=== PATIENT | male | born 1990 | race African-American/Black ===

== ENCOUNTER 2019-05-20 19:33 | Inpatient (IN) ==
[2019-05-20] MEDS ORDERED: NS 1,000 ML IV ONE ×2 (19:46→19:47)
[2019-05-20] MEDS ORDERED: TYLENOL ONE (19:54)
[2019-05-20] MEDS ORDERED: TYLENOL PO ONE (20:00)
--- NOTE | 2019-05-20 20:09 | EKG Report ---
Test Performed on : 05/20/2019 7:49:16 PM Test Reason : tachycardia Blood Pressure : / mmHG Vent. Rate : 084 BPM Atrial Rate : 084 BPM P-R Int : 142 ms QRS Dur : 080 ms QT Int : 326 ms P-R-T Axes : 069 083 051 degrees QTc Int : 385 ms Normal sinus rhythm. Normal ECG When compared with ECG of 10-JUN-2018 10:39, Vent. rate has increased BY 34 BPM Unconfirmed Result
[2019-05-20 20:38] LABS: BASO# 0.01 X1000 (0.0-0.2); BASO% 0.2 % (0.0-0.8); EOS# 0.06 X1000 (0.0-0.7); EOS% 1.3 % (0.0-10.0); HEMATOCRIT 44.3 % (42.0-52.0); HEMOGLOBIN 14.9 g/dL (14.0-18.0); LYMPH# 0.63 X1000 (1.2-3.4); LYMPH% 14.1 % (20.5-51.1); MCH 28.7 PG (27-31); MCHC 33.6 g/dL (33-37); MCV 85.4 FL (81-99); MONO# 0.71 X1000 (0.11-0.59); MONO% 15.9 % (1.7-9.3); MPV 12.8 FL (7.4-10.4); NEUT# 3.06 X1000 (1.4-6.5); NEUT% 68.5 % (42.2-75.2); PLT 104 X1000 (130-400); RBC 5.19 XMIL (4.7-6.1); RDW 13.1 % (11.5-14.5); WBC 4.47 X1000 (4.8-10.8)
[2019-05-20 20:39] LABS: INR 1.11; PROTIME 14.5 Seconds (11.0-16.0)
[2019-05-20 21:02] LABS: AGAP 11; ALB/GLOB RATIO 1.6; ALBUMIN 4.5 g/dL (3.5-5.0); ALKALINE PHOSPHATASE 85 U/L (32-122); BUN 13 mg/dL (8-22); CALCIUM 9.5 mg/dL (8.8-10.2); CHLORIDE 98 mmol/L (98-107); CK PROFILE 146 U/L (24-204); COSMO 271; CREATININE 1.2 mg/dL (0.7-1.2); ESTIMATED GFR > 60; GLUCOSE 107 mg/dL (70-104); GOT 458 U/L (10-34); GPT 550 U/L (10-44); POTASSIUM 4.1 mmol/L (3.5-5.1); SODIUM 135 mmol/L (136-145); TCO2 26 mmol/L (25-35); TOTAL BILIRUBIN 0.78 mg/dL (0.20-1.00); TOTAL PROTEIN 7.3 g/dL (6.3-8.3)
--- NOTE | 2019-05-20 21:02 | Diag Imaging Result Doc PS360 ---
EXAM: CHEST-PORTABLE HISTORY: possible pneumonia TECHNIQUE: Single view COMPARISON: 07/08/2015 FINDINGS: The lungs are well expanded. The heart is not enlarged. The vessels are not distended. There are no infiltrates. No effusion identified. IMPRESSION: No pneumonia Electronically signed by Vinnie Olivera 05/20/2019 9:00 PM
--- NOTE | 2019-05-20 21:37 | PROVIDER DOCUMENTATION ---
This chart was entered by Ara Sheppard Scribe, acting as scribe for Evelyn Ma MD. HPI-General Adult - General Chief Complaint: Flu Symptoms Stated Complaint: HEADACHE FEVER Time Seen by Provider: 05/20/19 19:45 Source: patient Allergies/Adverse Reactions: Patient Allergies Allergy/AdvReac Type Severity Reaction Status Date / Time No Known Allergies Allergy Verified 05/20/19 23:26 Home Medications: Home Medication List Medication Instructions Recorded Confirmed Last Taken Type Haloperidol Decanoate [Haloperidol 1 dose IM Q7D 05/20/19 05/20/19 Unknown History Decanoate 100] - History of Present Illness -Gen Adult Nature of Presenting Problems: pt is a 28 yr old male presenting with 1 day complaint of fever, sore throat, headache and nausea. Denies abdominal pain or cough. pt admits ibuprofen this AM without relief, denies any other complaints, denies any sick contacts or recent travel Location of Pain/Injury: reports: head, other (throat) Pain Radiation: reports: no radiation Quality of Pain: reports: aching (head), burning (throat) Severity: reports: moderate Onset/Duration: reports: this morning Timing: reports: still present Context/Activities at Onset: reports: light activity Modifying Factors: improves with: analgesics (tylenol-no relief) Associated Symptoms: reports: EENT symptoms, fever/chills, headaches. denies: cough, muscle aches, sinus congestion/drainage, shortness of breath Similar Symptoms Previously?: No Recently seen or treated by another doctor?: No Review of Systems - Adult - REVIEW OF SYSTEMS - ADULT Constitutional: reports: fever. denies: chills, fatique Eyes: reports: no symptoms reported Ears, Nose, Mouth & Throat: reports: throat pain. denies: ear pain, sinus problem Cardiovascular: denies: chest pain, palpitations, syncope Respiratory: denies: cough, shortness of breath Gastrointestinal: reports: nausea. denies: abdominal pain, vomiting Genitourinary: reports: no symptoms reported Musculoskeletal: denies: muscle aches, muscle weakness Integumentary: reports: no symptoms reported Neurological: reports: headache/migraines. denies: dizziness/vertigo, syncope Psychiatric: reports: no symptoms reported Endocrine: reports: no symptoms reported Hematologic/Lymphatic: reports: no symptoms reported Allergic/Immunologic: reports: no symptoms reported All Other Systems: Reviewed and Negative Past History - Adult - PAST MEDICAL HISTORY-ADULT Review of Records: reports: Old Records Reviewed, Nursing Assessment Review, Medications Reviewed, Social history reviewed & non-contributory. Major Childhood Illnesses: reports: denies history Cardiovascular: reports: denies history Respiratory: reports: denies history Gastrointestinal: reports: denies history Obstetrical/Gynecological: reports: denies history Genitourinary: reports: denies history Musculoskeletal: reports: denies history Neurological: reports: denies history Psychiatric: reports: schizophrenia Endocrine/Immune: reports: denies history Other Conditions: reports: denies history - PRIOR SURGERIES/PROCEDURES Surgical/Procedure History: reports: none - IMMUNIZATION STATUS Childhood Immunizations: See Nurse Assessment Flu Vaccine: See Nurse Assessment - FAMILY HISTORY Family History: reviewed, not pertinent - SOCIAL HISTORY Smoking: cigarettes Provider spent 3-5 mins advising pt. on dangers of tobacco.: Discussed manners to quit use, and f/u contacts for add'l counseling. Substance Use: alcohol Living Situation: family Physical Exam-General - PHYSICAL EXAM-ADULT Initial Vital Signs Reviewed: Yes - CONSTITUTIONAL General Appearance: appears well, alert, no apparent distress - EYES Eyes: PERRL/EOMI - HEAD, EARS, NOSE, MOUTH & THROAT HENMT: normocephalic/atraumatic, moist mucous membranes, normal ENT inspection - NECK Neck: non-tender, full range of motion, supple, normal inspection - RESPIRATORY Respiratory: chest non-tender, lungs clear, normal breath sounds, no respiratory distress, no accessory muscle use - CARDIOVASCULAR Cardiovascular: normal peripheral pulses, regular rate, rhythm, no edema. negative: tachycardia - GASTROINTESTINAL (ABDOMEN) Abdominal Exam: normal bowel sounds, non tender, soft - LYMPHATIC Lymphatic: no adenopathy - MUSCULOSKELETAL Back Exam: normal inspection, no CVA tenderness, no vertebral tenderness Extremity: normal range of motion, non-tender, normal gait, normal inspection - SKIN Integumentary: normal color, normal turgor, warm/dry - NEUROLOGIC Neurologic: grossly normal, no motor/sensory deficits - PSYCHIATRIC Psych/Mental Status: normal mood/affect, oriented x 3 Progress - PLAN OF CARE/RESULTS Progress/Plan/Lab Results: Vital Signs - 8 hr 05/20/19 19:39 Temperature 102.6 F H Pulse Rate 167 H Respiratory Rate 15 Blood Pressure 108/69 O2 Sat by Pulse Oximetry 99 Orders Category Date Time Status CHEST-PORTABLE [RAD] Stat Exams 05/20/19 19:49 Ordered CBC WITH ELECTRONIC DIFF [HEME] Stat Lab 05/20/19 19:45 Uncollected COMPREHENSIVE METABOLIC PANEL [CHEM] Stat Lab 05/20/19 19:45 Uncollected DIRECT STREP Stat Lab 05/20/19 19:39 Ordered INFLUENZA SCREEN A/B Stat Lab 05/20/19 19:43 Ordered LACTATE, PLASMA [CHEM] Stat Lab 05/20/19 19:45 Uncollected URINALYSIS W/POSS RFLX CULT [URINALYSIS] Stat Lab 05/20/19 19:45 Uncollected URINE DRUG SCREEN Stat Lab 05/20/19 19:45 Uncollected 0.9% Sodium Chloride Inj [Ns] 1,000 ml Med 05/20/19 19:46 Active IV 999 mls/hr 0.9% Sodium Chloride Inj [Ns] 1,000 ml Med 05/20/19 19:47 Active IV 999 mls/hr EKG [EKG] Stat Ther 05/20/19 19:45 Ordered Patient with reported initial HR to 160s however a few minutes later patient entered room and on monitor and EKG HR was in the 80s so the initial is likely incorrect. He did have a temp to 102.6 but flu, strep, CXR and UA all negative. CMP showing transaminitis but tbili, lipase all normal. CT abd pelvis negative for anything acute. Unknown if he acute hepatitis although not jaundiced. Low suspicion for COVID 19 given normal XR and no cough and no positive contacts. Spoke to Dr Staley, expansion joint builder for hosp and discussed patient. Will admit patient to [facility]. Further orders to be placed by their team. Held off medications at this time as there is no known source. Dr Staley agreed. Result Diagrams: 05/20/19 20:08 05/20/19 20:08 - EKG 1 Time of EKG reading by physician:: 19:49 EKG Read and Signed by:: Evelyn Ma EKG Interpretation (*Must complete 3 of following elements*): Normal Rate: 84 Rhythm: nsr Brethren: normal QRS: normal HI Interval: normal ST Wave: normal - CONSULTS/PCP/HOSPITALIST Notification #1 *Consult/PCP/Hospitalist*: Dr Staley Time Discussed: 23:19 Consult Disposition: Admit (Will admit to [facility]) Departure - Departure Date of Disposition Decision: 05/20/19 Time of Disposition Decision: 22:18 DIAGNOSIS: Fever, Viral syndrome, Transaminitis, Nausea Disposition: ADMITTED INPATIENT 09 Certified Medical Emergency: Emergent Condition: Stable - Critical Care Note This patient required my direct & personal management of CC.: No Attestation - Physician/ CHRISTIAN Attestation Patient care was provided by Advanced Practice Provider:: No The physician spent face to face time with patient:: Yes Advanced Practice Provider documentation review:: Supervising physician onsite and consulted in the evaluation and care of this patient. The physician did have a face to face encounter with the patient. This chart was documented by the indicated scribe, (Ara Sheppard Scribe) and accurately reflects the services I performed and decisions made by me, Evelyn Ma MD, as attested by the provider's signature.
[2019-05-20 21:52] LABS: URINE SOURCE CLEAN CATCH
[2019-05-20 21:58] LABS: BILIRUBIN URINE NEGATIVE (NEGATIVE); BLOOD URINE NEGATIVE (NEGATIVE); COLOR YELLOW; GLUCOSE URINE NEGATIVE (NEGATIVE); KETONE URINE NEGATIVE (NEGATIVE); LEUKOCYTES URINE NEGATIVE (NEGATIVE); NITRITE URINE NEGATIVE (NEGATIVE); PH URINE 6.5; PROTEIN URINE NEGATIVE (NEGATIVE); SP GRAVITY URINE 1.022; TURBIDITY URINE CLEAR (CLEAR); UR EPITHELIAL CELLS <10 /HPF (<10); URINE BACTERIA NEGATIVE /HPF; URINE RBC <10 /HPF (<10); URINE WBC <10 /HPF (<10); UROBILINOGEN URINE NORMAL (NORMAL)
--- NOTE | 2019-05-20 22:13 | Diag Imaging Result Doc PS360 ---
EXAM: CT ABD/PELVIS W/IV CONT ONLY HISTORY: fever, nausea, transaminitis TECHNIQUE: CT abdomen and pelvis with intravenous contrast, but without oral contrast. COMPARISON: 07/07/2014 FINDINGS: The gallbladder is contracted. No calcified stones. Normal liver, spleen, pancreas, adrenal glands, and kidneys. No hydronephrosis. There are several right pelvic calcifications believed to be phleboliths. Normal aorta. No bowel obstruction. Normal appendix. No abscess. The urinary bladder is moderately distended. Normal prostate. IMPRESSION: No acute abnormality This exam was performed using automated exposure control, adjustment of mA or kV according to patient size, and/or use of iterative reconstruction technique. Electronically signed by Vinnie Olivera 05/20/2019 10:11 PM
[2019-05-20 22:16] LABS: UR AMPHETAMINES QUAL NONE DETECTED (NONE DETECT); UR BARBITUATES QUAL NONE DETECTED (NONE DETECT); UR BENZODIAZEPIN QUAL NONE DETECTED (NONE DETECT); UR CANNABINOIDS QUAL PRESUMPTIVE POSITIVE (NONE DETECT); UR COCAINE QUAL NONE DETECTED (NONE DETECT); UR METHADONE QUAL NONE DETECTED (NONE DETECT); UR OPIATES QUAL NONE DETECTED (NONE DETECT); UR OXYCODONE QUAL NONE DETECTED (NONE DETECT); UR PCP QUAL NONE DETECTED (NONE DETECT)
[2019-05-20] MEDS ORDERED: TORADOL IV ONE (22:17)
[2019-05-21] MEDS ORDERED: ZOFRAN IV PRN (01:41)
[2019-05-21] MEDS ORDERED: TYLENOL PO PRN (01:42)
[2019-05-21] MEDS ORDERED: NICODERM PATCH TD PRN (01:43)
[2019-05-21] MEDS ORDERED: NS 1,000 ML IV SCH (01:45)
--- NOTE | 2019-05-21 02:21 | HISTORY AND PHYSICAL ---
ADDENDUM Mr. Casper Nicholson came in complaining of nausea, headache, sore throat, fever, and vague abdominal pain. He denied any associated respiratory illness. PHYSICAL EXAMINATION: VITAL SIGNS: Temperature 102.6 degrees, heart rate was in the 80s, respiratory rate is 15, blood pressure 108/69. His exam was essentially benign. HEENT: His oropharynx is normal. LYMPHATIC: No lymphadenopathy. CHEST: Clear. CARDIOVASCULAR: First and second heart sounds were heard. ABDOMEN: Benign. Good distal pulses. LAB WORK: However, showed a white count of 4000 with 104 platelet count. His lymphocytes were 14%. Sodium is 135. AST and ALT 450 and 550, were elevated compared to his baseline. Lipase and lactate both normal. UDS positive cannabinoids, to which the patient says he has been increasingly smoking lots of cannabinoids. IMAGING: CT scan was done and showed no acute abnormality. Chest film showed no pneumonia or acute finding. ASSESSMENT AND PLAN: The patient has elevated transaminases, which could be a viral syndrome and hepatitis panel has been ordered. He does have some degree of lymphocytopenia, which is probably nonspecific. The patient denies any use of Tylenol or uvlb-bol-xiienmi based products. The patient also has some degree of thrombocytopenia. The etiology of this cannot be ascertained. I do suspect this patient has an underlying about illness and I think the patient will need to be observed over the next 24 hours and see how his numbers trend. Depending on this, other investigative processes to rule out infectious source of a viral origin will need to be embarked upon. For now, just supportive measures with NSAIDs and fluids. cc: Sharron Staley MD
--- NOTE | 2019-05-21 05:29 | HISTORY AND PHYSICAL ---
PRIMARY CARE PROVIDER: The patient does not have a primary care provider. DATE AND TIME: 05/20/19 at 2340. CHIEF COMPLAINT: Flu symptoms. HISTORY OF PRESENT ILLNESS: Mr. Nicholson is a 28-year-old male who presents to the ER complaining of headache, sore throat, nausea and reported previous vague abdominal pain but he denies any abdominal pain at present. He has reported that he has had some fever. He denies any upper respiratory symptoms. He denies any sinus congestion, drainage, pressure. He denies any cough or shortness of breath. He also denies any dizziness, feeling lightheaded. He denies any chest pain. He denies any diarrhea, hematochezia or melena. He states his last bowel movement was earlier in the day on May 19. He denies any dysuria or urinary frequency. He denies any pain, numbness, tingling or swelling in extremities. The patient denies any recent illnesses or being around anyone with similar symptoms or flu-like symptoms. He denies any recent travel. He denies any travel out of the country, out of the state or even out of the [facility]. He denies any sick contacts, any contacts with individuals who have been exposed to Covid-19 or have been diagnosed with Covid-19. The patient did report he had taken some fqhj-ari-byquykc Tylenol though other than this he denies any medication use or tpzg-svu-pumrpdc medication use other than his regularly prescribed haloperidol decanoate. He also denies any geek-nrc-duwebxg use of any NSAIDs. He denies any alcohol use. He denies any previous history of liver disease or hepatitis. Upon evaluation in the ER, upon arrival the patient's temperature was 102.6 degrees, heart rate 167, respirations 15, blood pressure was 108/69 with a MAP of 82. Oxygen saturation was 99% on room air. The patient since his arrival has received 1 g of Tylenol p.o., 30 mg of Toradol IV, and 2 L normal saline bolus. Since that time, his vitals have improved to now having a temperature of 98.9 degrees, heart rate 60, respirations 16, blood pressure is 119/58 with a MAP of 73, and oxygen saturation is 99% on room air. The patient was noted upon laboratory findings to have transaminitis with an elevation of AST and ALT. The patient has not had this previously upon reviewing his laboratory history. Also noted he was slightly thrombocytopenic with a platelet count of 104,000. The urinalysis did not show any signs of infection. His urine drug screen was only positive for cannabinoids. They did perform influenza screen which was negative, a rapid strep which was negative. Blood cultures have also been obtained. Given his fever and elevated liver enzymes, We did perform a chest x-ray which showed no pneumonia. A CT of the abdomen and pelvis showed no acute abnormality. The patient at this time will be admitted outpatient with observation for further evaluation of his elevated liver function tests and his fever. The patient does not have a primary care provider that he could immediately follow up with outpatient. He will be placed for admission to the medical floor. REVIEW OF SYSTEMS: A 14 point review of systems was conducted with the patient and all were negative except for pertinent positives mentioned in above HPI. PAST MEDICAL HISTORY: 1. Schizophrenia. 2. Depression 3. Report history of previous suicide attempts. He denies any suicidal thoughts at present. 4. A reported history of a seizure that occurred one time at 12 years of age. PAST SURGICAL HISTORY: The patient denies any previous surgical history. SOCIAL HISTORY: The patient is a 1 pack per day smoker. He denies any alcohol use. He does report that he smokes marijuana. FAMILY HISTORY: Reports that his mother has a history of hypertension. He did not know if his father had a history of any medical problems. ALLERGIES: Patient reports no known allergies. HOME MEDICATIONS: Haloperidol decanoate 100 mg per 1 mL ampule 1 dose IM q.7 days. We have placed a order for the nurse to verify his medication dose, frequency, and last administration time. DIAGNOSTIC DATA: White blood cell count is 4470, hemoglobin 14.9, hematocrit 44.3, platelet count is 104,000. PT 14.5, INR 1.11, PTT is 34.5. Sodium 135, potassium 4.1, chloride 98, serum bicarb is 26, BUN 13, creatinine 1.2 with a GFR greater than 60, glucose 107, calcium 9.5. Liver function tests show a total bilirubin of 0.78, AST 458, ALT 550, alkaline phosphatase is 85. CK 146, troponin T high sensitivity is -6. Lipase 16. Plasma lactate 1.1. Urinalysis was obtained via clean catch, was negative for protein, glucose, ketones, blood, nitrites, bilirubin, leukocytes, white blood cells, or bacteria. Urine drug screen was positive for cannabinoids. EKG shows a normal sinus rhythm at a rate of 84 with a QTc of 385. Chest x-ray shows no pneumonia. Lungs are well expanded. The heart is not enlarged. The vessels were not distended. There are no infiltrates or effusions identified. This is per Radiology. CT abdomen and pelvis with IV contrast showed no acute abnormality. Liver was noted to be normal. Spleen, pancreas, adrenal glands and kidneys are also noted to be normal. The gallbladder was noted to be contracted. This is per Radiology. PHYSICAL EXAMINATION: VITAL SIGNS: Temperature 98.9 degrees, heart rate 60, respirations 16, blood pressure is 119/58, oxygen saturation is 99% on room air. GENERAL: Mr. Nicholson is a very pleasant 28-year-old male who is resting in the ER stretcher. He was in no acute distress. He was awake, alert and able to answer questions appropriately. HEENT: Head is atraumatic, normocephalic. Pupils are equal, round, reactive to light, were 3 mm bilaterally and brisk. Bilateral sclerae were white. No jaundice noted. Oral mucosa was moist. Oropharynx clear. NECK: Supple. Trachea midline. CARDIOVASCULAR: Patient has S1-S2 present. No murmurs, gallops, rubs appreciated with a regular rate and rhythm. PULMONARY: Patient has symmetrical chest expansion bilaterally. Lung sounds are clear to auscultation in bilateral full santos. ABDOMEN: Soft, nontender, nondistended. Bowel sounds are present in all 4 quadrants, were normoactive. EXTREMITIES: No cyanosis or edema noted. Pulse, motor, and sensory were intact in all extremities. Radial and pedal pulses are 2+ bilaterally. INTEGUMENTARY: The patient's skin color is normal for his race, is dry and intact. NEUROLOGICAL: Patient is alert and oriented to person, place, time, and situation. He is able to move all extremities. There were no focal neurological deficits noted. ASSESSMENT AND PLAN: 1. Transaminitis. This is of uncertain etiology at this time though this could be secondary to viral syndrome. We have ordered a hepatitis profile to be performed. We will repeat a CMP in the morning. We have also ordered an abdominal ultrasound to be performed as well. The patient is not reporting any abdominal pain or nausea at this time though we will place p.r.n. orders for Zofran if needed. We will provide some gentle intravenous hydration with normal saline at 85 mL/h. We will continue to follow. 2. Fever. This is of uncertain etiology as well. The patient has no leukocytosis noted. He was febrile upon arrival with a temperature of 102.6 degrees. Influenza screen and rapid strep were negative. He does not have pneumonia. Abdomen and pelvis CT was negative for any acute infectious process. His urinalysis did not show any signs of infection. He does not have any reported wounds. Blood cultures have been obtained. There is a throat culture pending as well. We will continue to follow along and rule out other possible sources of infection. Also, the patient denied any recent sick contacts. He denied being around anyone with upper respiratory or flu symptoms or anyone that has possibly been exposed to Covid-19 or has been diagnosed with Covid-19. The patient denied any recent travel out of the country, out of the State or even out of the [facility]. 3. Schizophrenia. The patient does reportedly take IM haloperidol decanoate. We are need to confirm his dose, frequency, and when he last received this medication. An nursing order for this has been placed. The patient does have a history of depression as well and has had previous suicide attempts in the past, though he denies any suicidal thoughts at present or recently. We will continue to follow. 4. Nicotine dependence. The patient has a p.r.n. order for nicotine patch to be placed if needed. We will continue to cemetery counselor him on smoking cessation throughout his admission and upon discharge. 5. Deep vein thrombosis prophylaxis will be provided with sequential compression devices. The patient has been placed on the medical floor with telemetry. We will repeat a CBC, CMP as well as a lipid profile in the morning. We will do strict intake and output. Further orders and recommendations pending hospital course, diagnostic studies, and physician evaluation. Dictated by MEGGAN Verma for Sharron Staley MD cc: Sharron Staley MD [facility]
--- NOTE | 2019-05-21 09:38 | Diag Imaging Result Doc PS360 ---
EXAM: US ABDOMEN-COMPLETE HISTORY: Transaminitis TECHNIQUE: Abdominal ultrasound COMPARISON: CT from 05/20/2019 FINDINGS: Normal pancreas, aorta, and inferior vena cava. No focal hepatic abnormality. Normal right kidney. No hydronephrosis. Normal gallbladder. No stones. The common bile duct measures 2 mm. Normal left kidney. No hydronephrosis. Normal spleen. IMPRESSION: Normal abdominal ultrasound. Electronically signed by Vinnie Olivera 05/21/2019 9:35 AM
[2019-05-21 11:24] LABS: BASO# 0.12 X1000 (0.0-0.2); BASO% 2.6 % (0.0-0.8); EOS# 0.09 X1000 (0.0-0.7); HEMATOCRIT 43.4 % (42.0-52.0); LYMPH# 1.12 X1000 (1.2-3.4); LYMPH% 24.5 % (20.5-51.1); MCH 27.9 PG (27-31); MCHC 32.3 g/dL (33-37); MCV 86.6 FL (81-99); MONO# 0.67 X1000 (0.11-0.59); MONO% 14.6 % (1.7-9.3); MPV 12.4 FL (7.4-10.4); NEUT# 2.58 X1000 (1.4-6.5); NEUT% 56.3 % (42.2-75.2); PLT 99 X1000 (130-400); RBC 5.01 XMIL (4.7-6.1); RDW 13.3 % (11.5-14.5); WBC 4.58 X1000 (4.8-10.8)
[2019-05-21 11:30] LABS: BANDS 4 % (0-1); LARGE PLATELETS 2+; LYMPHS 20 % (21-51); MONO 8 % (1-9); SEGS 68 % (42-75)
[2019-05-21 11:33] LABS: AGAP 9; ALB/GLOB RATIO 1.3; ALBUMIN 3.7 g/dL (3.5-5.0); ALKALINE PHOSPHATASE 99 U/L (32-122); BUN 9 mg/dL (8-22); CALCIUM 8.1 mg/dL (8.8-10.2); CHLORIDE 104 mmol/L (98-107); COSMO 275; ESTIMATED GFR > 60; GLUCOSE 105 mg/dL (70-104); GOT 693 U/L (10-34); POTASSIUM 4.2 mmol/L (3.5-5.1); SODIUM 138 mmol/L (136-145); TCO2 25 mmol/L (25-35); TOTAL BILIRUBIN 0.52 mg/dL (0.20-1.00); TOTAL PROTEIN 6.5 g/dL (6.3-8.3)
[2019-05-21 12:00] LABS: GPT 924 U/L (10-44)
--- NOTE | 2019-05-21 15:24 | PROGRESS NOTE ---
DATE: 05/21/2019 BRIEF PROGRESS NOTE: Patient admitted with abdominal pain, elevated liver enzymes, fever, but no respiratory symptoms. Has had no further fever since just after presentation. He is currently asymptomatic. A CT abdomen and pelvis and abdominal ultrasound not showing any clear liver pathology. No evidence of obstruction. However, AST and ALT have trended up somewhat on recheck this morning. Bilirubin remains within normal limits. May be fatty liver versus viral hepatitis. If patient had good followup, he might be able to discharge home, but given the trend in his LFTs and uncertain followup, will watch him at least function at least 1 more night. Hopefully, his LFTs will trend down in the morning, then he can probably go. Hepatitis panel pending. Ideally, we would get that back before he left but we will see. Clarified that while patient is uncertain of his dose of Haldol, he gets it approximately once a month, not once a week. It could potentially be contributing to some hepatic stasis. Will monitor and see what his labs do. We will go ahead and advance diet.
[2019-05-21] MEDS ORDERED: MELATONIN PO ONE (21:05)
[2019-05-22 06:59] LABS: BASO# 0.19 X1000 (0.0-0.2); BASO% 4.1 % (0.0-0.8); EOS% 2.2 % (0.0-10.0); HEMATOCRIT 44.3 % (42.0-52.0); HEMOGLOBIN 14.5 g/dL (14.0-18.0); LYMPH# 1.75 X1000 (1.2-3.4); MCHC 32.7 g/dL (33-37); MCV 85.5 FL (81-99); MONO# 0.99 X1000 (0.11-0.59); MONO% 21.5 % (1.7-9.3); MPV 12.9 FL (7.4-10.4); NEUT# 1.57 X1000 (1.4-6.5); NEUT% 34.2 % (42.2-75.2); PLT 109 X1000 (130-400); RBC 5.18 XMIL (4.7-6.1); RDW 13.1 % (11.5-14.5)
[2019-05-22 07:31] LABS: AGAP 13; ALB/GLOB RATIO 1.6; ALBUMIN 4.1 g/dL (3.5-5.0); ALKALINE PHOSPHATASE 137 U/L (32-122); BUN 7 mg/dL (8-22); CALCIUM 8.8 mg/dL (8.8-10.2); CHLORIDE 102 mmol/L (98-107); COSMO 273; CREATININE 0.9 mg/dL (0.7-1.2); ESTIMATED GFR > 60; GLUCOSE 86 mg/dL (70-104); POTASSIUM 4.2 mmol/L (3.5-5.1); SODIUM 138 mmol/L (136-145); TCO2 23 mmol/L (25-35); TOTAL PROTEIN 6.7 g/dL (6.3-8.3)
[2019-05-22 07:50] LABS: GOT 1159 U/L (10-34); GPT 1627 U/L (10-44)
[2019-05-22 08:34] LABS: HEPATITIS PROFILE ACUTE SEE COMMENTS
[2019-05-22 15:28] VITALS: BP 134/69
--- NOTE | 2019-05-22 15:28 | PROGRESS NOTE ---
DATE: 05/22/2019 INTERVAL HISTORY: The patient remains largely asymptomatic but LFTs continue to rise. Hepatitis B and C positive, which is likely the etiology of his transaminitis. REVIEW OF SYSTEMS: Twelve point review of systems negative except as per interval history. LABS: WBC 4.6, hemoglobin 14.5, hematocrit 44.3, platelets 109,000. Sodium 138, potassium 4.2, BUN 7, creatinine 0.9, glucose 86. AST 1159, ALT 1627, alkaline phosphatase 137, bilirubin 0.8. Hepatitis panel with hepatitis B core antibody reactive but surface antigen negative, and hepatitis A positive. VITAL SIGNS: T-max 99.8 degrees, pulse 66, respirations 20, blood pressure 122/65, O2 saturation 99% on room air. PHYSICAL EXAMINATION: General: No acute distress. Vitals: As above. HEENT: Normocephalic, atraumatic. Moist mucous membranes. No cervical adenopathy. Cardiovascular: Regular rate and rhythm. No murmurs noted. Pulmonary: Clear to auscultation bilaterally. No wheezing, rales, or rhonchi. Abdomen: Soft, nontender, nondistended. Bowel sounds positive. Extremities: Peripheral pulses intact. No clubbing, cyanosis, or edema. Neurologic: Cranial nerves grossly intact. No focal deficits identified. Psychiatric: Slightly flat and odd affect. Normal mood. Awake, alert, and oriented x3. ASSESSMENT AND PLAN: 1. Elevated liver function tests. AST, ALT, and alkaline phosphatase continue to trend up. Bilirubin trended up slightly as well, although remains in the normal range. The patient's hepatitis panel is positive for hepatitis A, which is the most likely cause. For hepatitis B, his core antibody was positive but surface antigen was negative, suggesting that he may have had hepatitis B in the past and cleared it. The patient is really asymptomatic at this point and I would like to send him home but difficult to send him when his AST, ALT, alkaline phosphatase, and bilirubin are all still trending up. Imaging has been unremarkable. We will get gastroenterology's opinion and see what they say. 2. Schizophrenia. The patient on monthly Haldol injections. Stable here. No hallucinations. 3. THC use. Patient counseled on cessation.
== END 2019-05-22 15:50 | disposition left against medical advice (07) | DRG 443 ==
LOC: ED 19:33 → SUATTDRO 05-21 00:11 → 4N 05-21 00:11
PROVIDERS: ATTEND Internal Medicine